=== PATIENT | male | born 1950 | race Caucasian/White ===

== ENCOUNTER 2023-01-17 11:06 | Outpatient (OUT) | payer MEDICARE, BC, SELFPAY ==
[2023-01-17 12:20] LABS: Alanine Aminotransferase 43 U/L (16-63); Albumin Level 3.9 g/dL (3.4-5.0); Alkaline Phosphatase 147 U/L (46-116); Anion Gap 11.3; Aspartate Amino Transferase 29 U/L (15-37); BUN Creatinine Ratio 15.7; Bilirubin Total 0.7 mg/dL (0.2-1.0); Calcium 9.4 mg/dL (8.5-10.1); Carbon Dioxide 27.5 mmol/L (21.0-32.0); Chloride 104 mmol/L (98-107); Chol HDL Ratio 3.3; Cholesterol 148 mg/dL (<=200); Estimated GFR (African America >60 (>=60); Estimated GFR (Non-African Ame 55 (>=60); Glucose 102 mg/dL (74-106); HDL Cholesterol 45 mg/dL (40-60); Potassium 3.8 mmol/L (3.5-5.1); Sodium 139 mmol/L (136-145); Total Protein 7.9 g/dL (6.4-8.2); Triglycerides 151 mg/dL (<=150); VLDL CHOLESTEROL 30.2 mg/dL
== END 2023-01-17 11:07 | disposition home or self-care (01) ==
LOC: LAB 11:12
PROVIDERS: PCP Family Medicine; Visit Provider Family Medicine
DX: I12.9 Hypertensive chronic kidney disease with stage 1 through stage 4 chronic kidney disease, or unspecified chronic kidney disease (principal); N18.30 Chronic kidney disease, stage 3 unspecified
CPT/HCPCS: 36415; 80053; 80061; 84443

== ENCOUNTER 2023-01-23 09:28 | Outpatient (OUT) | payer MEDICARE, BC, SELFPAY ==
[2023-01-23 09:48] LABS: Basophils Percent Auto 0.7 % (0.2-2.0); Eosinophils Absolute Auto 0.2 10^3/uL (0.0-0.7); Eosinophils Percent Auto 3.5 % (0.9-7.0); Hematocrit 40.9 % (42.0-54.0); Hemoglobin 13.9 g/dL (14.0-18.0); Immature Granulocytes Abs Auto 0.02 10^3/uL (0.00-0.03); Immature Granulocytes Pct Auto 0.4 % (0.0-0.5); Lymphocytes Absolute Auto 1.8 10^3/uL (1.2-3.8); Lymphocytes Percent Auto 31.2 % (20.5-60.0); Mean Corpuscular Hemoglobin 34.8 pg (25.9-34.0); Mean Corpuscular Volume 102.3 fL (80.0-94.0); Mean Platelet Volume 9.7 fL (9.5-13.5); Monocytes Absolute Auto 0.5 10^3/uL (0.3-0.8); Neutrophils Absolute Auto 3.2 10^3/uL (1.4-6.5); Neutrophils Percent Auto 56.2 % (43.0-75.0); Platelet Count 184 10^3/uL (150-450); Red Cell Distribution Width 13.2 % (11.0-15.0); White Blood Count 5.6 10^3/uL (4.0-11.0)
== END 2023-01-23 09:29 | disposition home or self-care (01) ==
LOC: LAB 09:29
PROVIDERS: PCP Family Medicine; Visit Provider Family Medicine
DX: I12.9 Hypertensive chronic kidney disease with stage 1 through stage 4 chronic kidney disease, or unspecified chronic kidney disease (principal); N18.30 Chronic kidney disease, stage 3 unspecified
CPT/HCPCS: 36415; 85025

== ENCOUNTER 2023-09-28 11:35 | Outpatient (OUT) | payer MEDICARE, BC, SELFPAY ==
--- NOTE | 2023-09-28 | ECG_ITS ---
[facility] Test Date: 2023-09-28 Pat Name: ALEX NICK Department: Room: - Gender: Male [employer]: : 1950 Requested By: DELMI DEWITT Order Number: [id number] Reading MD: KATHERIN ULRICH Measurements Intervals [place] Rate: 59 P: 56 CT: 231 QRS: -46 QRSD: 163 T: 41 QT: 425 QTc: 421 Interpretive Statements SINUS BRADYCARDIA WITH FIRST DEGREE AV BLOCK RIGHT BUNDLE BRANCH BLOCK [120+ ms QRS DURATION, UPRIGHT V1, 40+ ms S IN I/aVL/V4/V5/V6] LEFT ANTERIOR FASCICULAR BLOCK [QRS AXIS <= -45, QR IN I, RS IN II] Compared to ECG 11/03/2020 18:38:41 Left anterior fascicular block now present Sinus rhythm no longer present Possible ischemia no longer present Left-axis deviation no longer present Electronically Signed On 09-29-2023 13:19:01 EDT by KATHERIN ULRICH
== END 2023-09-28 11:36 | disposition home or self-care (01) ==
LOC: CARD 11:37
PROVIDERS: PCP Family Medicine; Visit Provider Family Medicine
DX: I49.9 Cardiac arrhythmia, unspecified (principal)
CPT/HCPCS: 93005